=== PATIENT | female | born 1985 | race Caucasian/White ===

== ENCOUNTER 2019-06-08 15:46 | Emergency (ER) | payer OTHER ==
--- NOTE | 2019-06-08 15:50 | PDOC ---
Rapid Medical Evaluation Time Seen by Provider: 06/08/19 15:48 Medical Evaluation: Allergies Allergy/AdvReac Type Severity Reaction Status Date / Time No Known Allergies Allergy Verified 06/08/19 15:48 06/08/19 15:49 HPI: Questionable abscess lower back; On ABX without relief PE:Area not visualized in triage; otherwise no gross deficits ORDERS:Nothing Discharge Disposition - Diagnosis Abscess - Referrals - Patient Instructions - Post Discharge Activity
[2019-06-08 15:54] VITALS: BP 120/62; PULSE 69; TEMP 97.7; BMI 20.3
[2019-06-08] MEDS ORDERED: IBUPROFEN 600 MG TABLET (FP) PO ONE ×2 (18:26→19:30)
--- NOTE | 2019-06-08 19:16 | PDOC ---
History of Present Illness - General Chief Complaint: Abscess Boil Stated Complaint: BOIL ON THE LOWER BACK Time Seen by Provider: 06/08/19 15:48 History Source: Patient Exam Limitations: No Limitations - History of Present Illness Initial Comments: 06/08/19 19:17 33 year old female with no significant medical or surgical history presents with abscess to right buttocks x 1 week. Seen by pmd started on Augmentin and told to do warm soaks, also given instructions to come into emergency room if area is not getting better. Denies fever or chills Timing/Duration: reports: week Severity: Yes: mild Location: reports: torso Respiratory Risk Factors: reports: no cause identified Modifying Factors: improves with: other (antibiotics and analgesia) Past History - Travel Traveled outside of the country in the last 30 days: No Close contact w/someone who was outside of country & ill: No - Past Medical History Allergies/Adverse Reactions: Allergies Allergy/AdvReac Type Severity Reaction Status Date / Time No Known Allergies Allergy Verified 06/08/19 15:48 Home Medications: Ambulatory Orders Cephalexin [Keflex] 500 mg PO BID #7 capsule 06/08/19 Sulfamethoxazole/Trimethoprim [Bactrim Ds -] 1 tab PO BID #20 tablet 06/08/19 Cancer: No Cardiac Disorders: No CVA: No COPD: No DVT: No Dementia: No - Suicide/Smoking/Psychosocial Hx Smoking History: Never smoked Hx Alcohol Use: No Drug/Substance Use Hx: No Substance Use Type: None Review of Systems - Review of Systems Able to Perform ROS?: Yes Is the patient limited Luxem[place]ish proficient: No Constitutional: No: Chills, Fever HEENTM: No: Nose Pain, Nose Congestion, Throat Swelling Respiratory: No: Orthopnea, Shortness of Breath, Stridor Cardiac (ROS): No: Chest Pain, Lightheadedness ABD/GI: No: Nausea, Poor Appetite, Poor Fluid Intake, Vomiting, Indigestion, Abdominal cramping : No: Burning, Dysuria, Hematuria, Incontinence Musculoskeletal: No: Gout, Joint Pain, Muscle Weakness, Neck Pain Integumentary: Yes: Other (abscess to right buttocks) Neurological: No: Headache, Numbness Psychiatric: No: Stressors, Mood Swings Endocrine: No: Increased Thirst Hematologic/Lymphatic: No: Easy Bleeding, Easy Bruising, Bleeding Diathesis *Physical Exam - Vital Signs Last Vital Signs Temp Pulse Resp BP Pulse Ox 97.7 F 69 16 120/62 98 06/08/19 15:50 06/08/19 15:50 06/08/19 15:50 06/08/19 15:50 06/08/19 15:50 - Physical Exam General Appearance: Yes: Nourished, Appropriately Dressed. No: Apparent Distress HEENT: positive: EOMI, PARTH, TMs Normal, Pharynx Normal. negative: Tonsillar Erythema, Nasal Congestion, Rhinorrhea Neck: positive: Supple. negative: Lymphadenopathy (R), Lymphadenopathy (L) Respiratory/Chest: positive: Lungs Clear, Normal Breath Sounds. negative: Respiratory Distress Cardiovascular: positive: Regular Rhythm, Regular Rate, S1, S2 Gastrointestinal/Abdominal: positive: Normal Bowel Sounds Extremity: positive: Normal Capillary Refill Integumentary: positive: Other (+ abscess to right buttocks, + erythematous, + fluctuance, small punctuate) Neurologic: positive: Fully Oriented, Alert, Normal Mood/Affect Procedures - Incision and Drainage I&D Site: Right: Buttock Betadine cleansed: Yes Anesthesia: 2% Lidocaine Volume(ml): 10 Blade Size: 10 Iodinated Packin/2 in Plain Packing: Yes Complications: none Dressing: Yes Progress: 06/08/19 19:23 Patient tolerated procedure well, incision with drainage of serosanguanous drainage Medical Decision Making - Medical Decision Making 06/08/19 19:21 33 year old female with no significant medical or surgical history presents with abscess to right buttocks x 1 week. Plan wound culture ibuprofen i+ d of abscess with packing placed instructions given not to remove dressing or packing return for wound check in 2 days rx; bactrim Ds and keflex d/c augmentin *DC/Admit/Observation/Transfer Diagnosis at time of Disposition: Abscess - Discharge Dispostion Disposition: HOME Condition at time of disposition: Good Decision to Admit order: No - Prescriptions Prescriptions: Cephalexin [Keflex] 500 mg PO BID #7 capsule Sulfamethoxazole/Trimethoprim [Bactrim Ds -] 1 tab PO BID #20 tablet - Referrals Referrals: Charles Smith MD [Primary Care Provider] - Call tomorrow - Patient Instructions Printed Discharge Instructions: Boil Additional Instructions: Please keep dressing in place for 48 hours, do not get it wet. Take antibiotics as prescribed. Stop taking augmentin previously prescribed May take ibuprofen for pain Return to emergency department 06/10/19 for wound check and packing removal - Post Discharge Activity Forms/Work/School Notes: Back to Work
== END 2019-06-08 19:34 | disposition home or self-care (01) ==
LOC: JERFT 15:46
PROC: 0H98XZZ Drainage of Buttock Skin, External Approach (ICD-10-PCS; principal; 2019-06-08)
DX: L02.31 Cutaneous abscess of buttock (principal)
CPT/HCPCS: 87070; 87186; 87205; 99281-25

== ENCOUNTER 2019-06-10 10:21 | Emergency (ER) | payer OTHER ==
[2019-06-10 10:48] VITALS: BP 123/66; PULSE 83; BMI 20.2
--- NOTE | 2019-06-10 11:37 | PDOC ---
History of Present Illness - General Chief Complaint: Wound Stated Complaint: WOUND CHECK Time Seen by Provider: 06/10/19 11:23 - History of Present Illness Initial Comments: 06/10/19 11:34 33-year-old female presents for wound check after I&D of an abscess 2 days ago. She's feeling better and taking antibiotics. Past History - Past Medical History Allergies/Adverse Reactions: Allergies Allergy/AdvReac Type Severity Reaction Status Date / Time No Known Allergies Allergy Verified 06/08/19 15:48 Home Medications: Ambulatory Orders Cephalexin [Keflex] 500 mg PO BID #7 capsule 06/08/19 Sulfamethoxazole/Trimethoprim [Bactrim Ds -] 1 tab PO BID #20 tablet 06/08/19 Cancer: No Cardiac Disorders: No CVA: No COPD: No DVT: No Dementia: No - Immunization History Immunization Up to Date: Yes - Suicide/Smoking/Psychosocial Hx Smoking History: Never smoked Information on smoking cessation initiated: No Hx Alcohol Use: No Drug/Substance Use Hx: No Substance Use Type: None Review of Systems - Review of Systems Integumentary: Yes: See HPI *Physical Exam - Vital Signs Last Vital Signs Temp Pulse Resp BP Pulse Ox 83 17 123/66 98 06/10/19 10:45 06/10/19 10:45 06/10/19 10:45 06/10/19 10:45 - Physical Exam Comments: 06/10/19 11:34 The wound on the lumbosacral spine is visualized packing was removed. There is minimal induration surrounding the area of the incision. There is no purulent drainage. No erythema or warmth. There is appropriate tenderness. No gross sensory motor deficits. Medical Decision Making - Medical Decision Making 06/10/19 11:35 packing Was removed and a wet-to-dry dressing was placed. Instructions for twice a day changes were given *DC/Admit/Observation/Transfer Diagnosis at time of Disposition: Wound check, abscess - Discharge Dispostion Disposition: HOME Condition at time of disposition: Stable Decision to Admit order: No - Referrals Referrals: Enrico Subramanian MD [Staff Physician] - - Patient Instructions Additional Instructions: Continue with wet-to-dry dressing changes twice daily as discussed. Return to the emergency room in 3 days for wound check or sooner if problems develop. Continue the antibiotics as directed. - Post Discharge Activity
== END 2019-06-10 12:17 | disposition home or self-care (01) ==
LOC: JERFT 10:21
DX: Z48.01 Encounter for change or removal of surgical wound dressing (principal)
CPT/HCPCS: 99281-25

== ENCOUNTER 2019-06-13 14:30 | Emergency (ER) | payer OTHER ==
--- NOTE | 2019-06-13 14:34 | PDOC ---
Rapid Medical Evaluation Time Seen by Provider: 06/13/19 14:33 Medical Evaluation: Allergies Allergy/AdvReac Type Severity Reaction Status Date / Time No Known Allergies Allergy Verified 06/08/19 15:48 06/13/19 14:33 CC: wound check PE: deferred Orders: nothing Patient will proceed to ED for continued evaluation. Discharge Disposition - Diagnosis Wound check, abscess - Referrals - Patient Instructions - Post Discharge Activity
[2019-06-13 14:38] VITALS: BP 122/51; PULSE 71; TEMP 97.9; BMI 19.5
--- NOTE | 2019-06-13 15:06 | PDOC ---
History of Present Illness - General Chief Complaint: Wound Stated Complaint: WOUND CHECK Time Seen by Provider: 06/13/19 14:33 - History of Present Illness Initial Comments: 06/13/19 15:05 33-year-old female presents for evaluation of wound check from an abscess that was drained and followed up for wound care. She is currently doing wet-to-dry dressing changes twice daily Past History - Past Medical History Allergies/Adverse Reactions: Allergies Allergy/AdvReac Type Severity Reaction Status Date / Time No Known Allergies Allergy Verified 06/08/19 15:48 Home Medications: Ambulatory Orders Cephalexin [Keflex] 500 mg PO BID #7 capsule 06/08/19 Sulfamethoxazole/Trimethoprim [Bactrim Ds -] 1 tab PO BID #20 tablet 06/08/19 Cancer: No Cardiac Disorders: No CVA: No COPD: No DVT: No Dementia: No - Immunization History Immunization Up to Date: Yes - Suicide/Smoking/Psychosocial Hx Smoking History: Never smoked Hx Alcohol Use: No Drug/Substance Use Hx: No Substance Use Type: None Review of Systems - Review of Systems Constitutional: Yes: See HPI *Physical Exam - Vital Signs Last Vital Signs Temp Pulse Resp BP Pulse Ox 97.9 F 71 20 122/51 L 98 06/13/19 14:35 06/13/19 14:35 06/13/19 14:35 06/13/19 14:35 06/13/19 14:35 - Physical Exam Comments: 06/13/19 15:04 the wound granulating. Normal surrounding skin color and temperature. Medical Decision Making - Medical Decision Making 06/13/19 15:04 The wound is granulating nicely. Wet-to-dry dressing applied will change to once daily instead of twice daily for the next 45 days *DC/Admit/Observation/Transfer Diagnosis at time of Disposition: Wound check, abscess - Discharge Dispostion Disposition: HOME Condition at time of disposition: Stable Decision to Admit order: No - Referrals Referrals: Charles Smith MD [Primary Care Provider] - - Patient Instructions Additional Instructions: Return to the emergency room for worsening issues. Continue with wet-to-dry dressing changes once a day for the next 4-5 days. Leave the area open to air as much as possible and follow-up with her primary care physician in 1-2 days for further evaluation and treatment options. - Post Discharge Activity
== END 2019-06-13 15:14 | disposition home or self-care (01) ==
LOC: JERFT 14:30
DX: Z48.01 Encounter for change or removal of surgical wound dressing (principal)
CPT/HCPCS: 99281-25

== ENCOUNTER 2019-06-26 13:23 | Emergency (ER) | payer OTHER ==
[2019-06-26 13:30] VITALS: BP 109/64; PULSE 61; TEMP 97.9; BMI 20.3
--- NOTE | 2019-06-26 13:49 | PDOC ---
History of Present Illness - General Chief Complaint: Abscess Boil Stated Complaint: ABCESS/LOWER BACK Time Seen by Provider: 06/26/19 13:41 History Source: Patient Exam Limitations: No Limitations - History of Present Illness Initial Comments: 06/26/19 13:50 HISTORY OF PRESENT ILLNESS: This is a 33-year-old woman with a recent abscess who presents emergency department for evaluation of pain and swelling to her left buttock. Patient believes she has another abscess that is not draining. She reports recently taking Keflex and Bactrim the previous abscess which had I& D performed here. Patient denies fevers, chills. No recent travel or sick contacts. PAST MEDICAL HISTORY: Denies past medical history SURGICAL HISTORY: Denies ALLERGIES: No known drug allergies REVIEW OF SYSTEMS General/Constitutional: Denies fever or chills. Denies weakness, weight change. HEENT: Denies change in vision. Denies ear pain or discharge. Denies sore throat. Cardiovascular: Denies chest pain or shortness of breath. Respiratory: Denies cough, wheezing, or hemoptysis. Gastrointestinal: Denies nausea, vomiting, diarrhea or constipation. Denies rectal bleeding. Genitourinary: Denies dysuria, frequency, or change in urination. Musculoskeletal: Denies joint or muscle swelling or pain. Denies neck or back pain. Skin and breasts: see HPI Neurologic: Denies headache, vertigo, loss of consciousness, or loss of sensation. Psychiatric: Denies depression or anxiety. Endocrine: Denies increased thirst. Denies abnormal weight change. Hematologic/Lymphatic: Denies anemia, easy bleeding, or history of blood clots. Allergic/Immunologic: Denies hives or skin allergy. Denies latex allergy. PHYSICAL EXAM General Appearance: Well-appearing, appropriately dressed. No apparent distress , no intoxication. Respiratory/Chest: Lungs CTAB. No shortness of breath, chest tenderness, respiratory distress, accessory muscle use. No crackles, rales, rhonchi, stridor , wheezing, dullness Cardiovascular: RRR. S1, S2. No JVD, murmur, bradycardia, tachycardia. Integumentary: 8 cm circular area of erythema and induration present to the left buttock. No palpable area of fluctuance present. 2 cm circular area of erythema and induration presents to the left buttock which is superior and lateral to the larger area of erythema. No fluctuance present. Neurologic: library media specialist II-XII intact. Fully oriented, alert. Appropriate mood/affect. Motor strength 5/5. No appreciable EOM palsy, facial droop or sensory deficit. Past History - Past Medical History Allergies/Adverse Reactions: Allergies Allergy/AdvReac Type Severity Reaction Status Date / Time No Known Allergies Allergy Verified 06/26/19 13:30 Home Medications: Ambulatory Orders Cephalexin [Keflex] 500 mg PO BID #7 capsule 06/08/19 Sulfamethoxazole/Trimethoprim [Bactrim Ds -] 1 tab PO BID #20 tablet 06/08/19 Clindamycin [Cleocin -] 450 mg PO Q8H #63 capsule 06/26/19 Cancer: No Cardiac Disorders: No CVA: No COPD: No DVT: No Dementia: No - Immunization History Immunization Up to Date: Yes - Suicide/Smoking/Psychosocial Hx Smoking History: Never smoked Hx Alcohol Use: No Drug/Substance Use Hx: No Substance Use Type: None *Physical Exam - Vital Signs Last Vital Signs Temp Pulse Resp BP Pulse Ox 97.9 F 61 18 109/64 99 06/26/19 13:28 06/26/19 13:28 06/26/19 13:28 06/26/19 13:28 06/26/19 13:28 Medical Decision Making - Medical Decision Making 06/26/19 13:53 A/P: 33-year-old woman with cellulitis of her left buttock Microbiology report from previous I&D reveals Staphylococcus aureus which is highly sensitive to clindamycin As there is currently no fluctuant area for I&D to be performed, I will discharge the patient home with clindamycin 450 mg 3 times a day for the next week. Patient has been instructed to use warm compresses to affected areas to help expedite the process potentially forming area of fluctuance to be drained. Portions of this note have been documented using voice recognition software. As a result, errors may occur in the intravenous therapy nurse process. Effort has been made to correct all grammatical and intravenous therapy nurse error, but some may have been missed. *DC/Admit/Observation/Transfer Diagnosis at time of Disposition: Cellulitis Qualifiers: Site of cellulitis: buttock Qualified Code(s): L03.317 - Cellulitis of buttock - Discharge Dispostion Disposition: HOME Condition at time of disposition: Stable Decision to Admit order: No - Prescriptions Prescriptions: Clindamycin [Cleocin -] 450 mg PO Q8H #63 capsule - Referrals Referrals: Charles Smith MD [Primary Care Provider] - - Patient Instructions Additional Instructions: Take Clindamycin 450 mg 3 times a day for the next 7 days Finish all antibiotics even if you feel better. Apply warm compresses to affected areas as needed. Return to emergency department for any worsening pain, drainage, or any other concerns. Thank you very much for choosing us to provide your emergent health care needs. - Post Discharge Activity
== END 2019-06-26 14:08 | disposition home or self-care (01) ==
LOC: JER 13:23
DX: L03.317 Cellulitis of buttock (principal); Z86.19 Personal history of other infectious and parasitic diseases
CPT/HCPCS: 99281-25

== ENCOUNTER 2019-09-01 19:33 | Emergency (ER) | payer OTHER ==
[2019-09-01 19:42] VITALS: BP 128/77; PULSE 70; TEMP 97.9; BMI 22.7
--- NOTE | 2019-09-01 19:42 | PDOC ---
Rapid Medical Evaluation Chief Complaint: Abscess Boil Time Seen by Provider: 09/01/19 19:37 Medical Evaluation: Allergies Allergy/AdvReac Type Severity Reaction Status Date / Time No Known Allergies Allergy Verified 06/26/19 13:30 09/01/19 19:39 I have performed a brief in-person evaluation of this patient. The patient presents with a chief complaint of:recurrent boils/ abscess to buttocks , finished abx 2 weeks for 2nd episode of same. Culture then reveals PCN Resistant Staph. Pertinent physical exam findings:multiple lesions to right buttock, some erythema but none draining I have ordered the following: nothing The patient will proceed to the ED for further evaluation. 09/01/19 19:46 Discharge Disposition - Diagnosis Wound check, abscess - Discharge Dispostion Condition at time of disposition: Stable - Referrals - Patient Instructions - Post Discharge Activity
--- NOTE | 2019-09-01 20:03 | PDOC ---
History of Present Illness - General Chief Complaint: Abscess Boil Stated Complaint: ABSCESS Time Seen by Provider: 09/01/19 19:37 History Source: Patient - History of Present Illness Initial Comments: 09/01/19 20:37 Chief complaint: Abscess Patient is a 33-year-old female who has issues with recurrent abscesses to her buttocks. She has been here several times recently with similar problems, had original culture that showed she is staph aureus. Patient has taken Bactrim and Keflex, had an I&D done. The next time she was put on clindamycin and each time it got better. She followed up with her regular doctor who put her on unknown antibiotic which got better and now is getting worse again. Patient has no fever she just has some pain. GENERAL/CONSTITUTIONAL: No fever, weakness. dizziness HEAD, EYES, EARS, NOSE AND THROAT: No change in vision. No ear pain or discharge. No sore throat. CARDIOVASCULAR: No chest pain RESPIRATORY: No shortness of breath or cough GASTROINTESTINAL: No pain, nausea, vomiting, diarrhea or constipation GENITOURINARY: No dysuria MUSCULOSKELETAL: No neck or back pain SKIN: + Abscess NEUROLOGIC: No headache, vertigo, loss of consciousness, or loss of sensation. GENERAL: The patient is awake, alert, and fully oriented, in no acute distress. HEAD: Normal with no signs of trauma. EYES: Pupils equal, round and reactive to light, sclera anicteric, conjunctiva clear. ENT: pharynx: no erythema, no exudate, uvula midline NECK: supple CHEST: clear, nontender, rr ABD: soft, nontender Buttocks: Patient has several healing areas of folliculitis, one larger one which is slightly tender with mild erythema, no fluctuance, no signs of abscess BACK: no tenderness or signs of injury EXTREMITIES: Normal range of motion, no edema. NEUROLOGICAL: Normal speech, normal gait. SKIN: Warm, Dry Past History - Past Medical History Allergies/Adverse Reactions: Allergies Allergy/AdvReac Type Severity Reaction Status Date / Time No Known Allergies Allergy Verified 09/01/19 19:44 Home Medications: Ambulatory Orders Cephalexin [Keflex] 500 mg PO BID #7 capsule 06/08/19 Sulfamethoxazole/Trimethoprim [Bactrim Ds -] 1 tab PO BID #20 tablet 06/08/19 Clindamycin [Cleocin -] 450 mg PO Q8H #63 capsule 06/26/19 Cephalexin [Keflex] 500 mg PO QID #28 capsule 09/01/19 Hydrocodone/Acetaminophen [Hydrocodone-Acetamin 5-325 mg] 1 each PO HS PRN #10 tablet MDD 1 09/01/19 Sulfamethoxazole/Trimethoprim [Bactrim Ds Tablet] 1 each PO BID #20 tablet 09/01 Cancer: No Cardiac Disorders: No CVA: No COPD: No DVT: No Dementia: No - Immunization History Immunization Up to Date: Yes - Psycho Social/Smoking Cessation Hx Smoking History: Never smoked Have you smoked in the past 12 months: No Information on smoking cessation initiated: No Hx Alcohol Use: No Drug/Substance Use Hx: No Substance Use Type: None *Physical Exam - Vital Signs Last Vital Signs Temp Pulse Resp BP Pulse Ox 97.9 F 70 17 128/77 100 09/01/19 19:37 09/01/19 19:37 09/01/19 19:37 09/01/19 19:37 09/01/19 19:37 Medical Decision Making - Medical Decision Making 09/01/19 20:46 Patient with reoccurring folliculitis, abscess to her buttocks, was on antibiotics 3 times and keeps coming back after she finishes the antibiotics patient does not look ill. There is no abscess to I&D. When asked which antibiotics worked better she said the first time which was Keflex and Bactrim which are both sensitive on the culture. Patient will be given prescription for 10 days. I encouraged patient to go to wound care so they can further evaluate. She may also need to see an infectious disease doctor although she has a very good primary care doctor. Discussed issues, findings, results, applicable medications and treatments and follow-up. All these were understood and all questions were answered Discharge - Discharge Information Problems reviewed: Yes Clinical Impression/Diagnosis: Folliculitis Condition: Stable Disposition: HOME - Admission No - Additional Discharge Information Prescriptions: Cephalexin [Keflex] 500 mg PO QID #28 capsule Hydrocodone/Acetaminophen [Hydrocodone-Acetamin 5-325 mg] 1 each PO HS PRN #10 tablet MDD 1 PRN Reason: Pain Sulfamethoxazole/Trimethoprim [Bactrim Ds Tablet] 1 each PO BID #20 tablet - Follow up/Referral Referrals: ON STAFF,NOT [Primary Care Provider] - - Patient Discharge Instructions Additional Instructions: Clean with soap and water 2-3 times daily Take the Bactrim and Keflex as prescribed, follow-up with wound care, call in the morning [phone] Have her reevaluated if redness, pus, fever or getting worse Followup with your doctor - Post Discharge Activity
== END 2019-09-01 20:33 | disposition home or self-care (01) ==
LOC: JERFT 19:33
DX: L73.8 Other specified follicular disorders (principal)
CPT/HCPCS: 99281-25

== ENCOUNTER 2023-11-04 21:00 | Emergency (ER) | payer OTHER ==
[2023-11-04 21:08] VITALS: BP 120/67; PULSE 74; RESP 20; TEMP 97.6; BMI 21.9
[2023-11-04] MEDS ORDERED: METHOCARBAMOL 750 MG TABLET PO ONE (22:29)
[2023-11-04] MEDS ORDERED: ACETAMINOPHEN 500 MG TABLET (FP) PO ONE (22:29)
[2023-11-04] MEDS ORDERED: NAPROXEN 250 MG TABLET PO ONE (22:29)
[2023-11-04] MEDS ORDERED: METHOCARBAMOL 500 MG TABLET ONE (22:32)
[2023-11-04] MEDS ORDERED: ACETAMINOPHEN 500 MG TABLET (FP) ONE (22:32)
[2023-11-04] MEDS ORDERED: NAPROXEN 500 MG TABLET ONE (22:33)
== END 2023-11-04 22:48 | disposition home or self-care (01) ==
LOC: JERFT 21:00
DX: M25.511 Pain in right shoulder (principal)
CPT/HCPCS: 73030-TC-RT-FY; 99283-25

== ENCOUNTER 2024-08-18 19:46 | Emergency (ER) | payer OTHER ==
[2024-08-18 19:59] VITALS: BP 121/74; PULSE 82; RESP 18; TEMP 97.9; BMI 21.9
[2024-08-18] MEDS ORDERED: METOCLOPRAMIDE HCL INJECTION 10 MG/2 ML VIAL ONE (20:57)
[2024-08-18] MEDS ORDERED: KETOROLAC TROMETHAMINE 15 MG/ML VIAL ONE (20:57)
[2024-08-18 21:03] LABS: BASO % 0.8 % (0-2.0); HEMATOCRIT 37.7 % (32.4-45.2); LYMPH % 36.7 % (8-40); MCH 31.3 pg (25.7-33.7); MCHC 34.4 g/dl (32.0-36.0); MEAN CELL VOLUME 90.8 fl (80-96); MEAN PLT VOLUME 8.3 fl (7.5-11.1); MONO % 9.5 % (3.8-10.2); PLATELET COUNT 249 10^3/uL (134-434); RBC 4.15 M/mm3 (3.60-5.2); RDW 12.8 % (11.6-15.6); WHITE BLOOD COUNT 6.7 K/mm3 (4.0-10.0)
[2024-08-18] MEDS: KETOROLAC TROMETHAMINE 15 MG/ML VIAL IVPUSH ONE (21:08)
[2024-08-18] MEDS: METOCLOPRAMIDE HCL INJECTION 10 MG/2 ML VIAL IVPB ONE (21:22)
[2024-08-18 21:32] LABS: CHLORIDE 108 mmol/L (98-107); POTASSIUM 3.6 mmol/L (3.5-5.1); SODIUM 140 mmol/L (136-145)
[2024-08-18 21:34] LABS: ALBUMIN 3.6 g/dl (3.4-5.0); ANION GAP 5 mmol/L (4-13); BLOOD UREA NITROGEN 12.8 mg/dL (7-18); CALCIUM 8.8 mg/dL (8.5-10.1); CO2 27 mmol/L (21-32); GLUCOSE,RANDOM 110 mg/dL (74-106)
[2024-08-18 21:37] LABS: CREATININE 0.6 mg/dL (0.55-1.3); SGOT/AST 7 U/L (15-37); SGPT/ALT 16 U/L (13-61)
[2024-08-18 21:39] LABS: BILIRUBIN,TOTAL 0.2 mg/dL (0.2-1); TOT PROT 6.6 g/dl (6.4-8.2)
[2024-08-18 21:40] LABS: ALK PHOS 53 U/L (45-117)
[2024-08-18 22:27] LABS: HIV INTERPRETATION NEGATIVE (NEGATIVE)
== END 2024-08-18 22:06 | disposition home or self-care (01) ==
LOC: JER 19:46
PROC: 3E0333Z Introduction of Anti-inflammatory into Peripheral Vein, Percutaneous Approach (ICD-10-PCS; principal; 2024-08-18)
PROC: 3E033GC Introduction of Other Therapeutic Substance into Peripheral Vein, Percutaneous Approach (ICD-10-PCS; 2024-08-18)
DX: R10.12 Left upper quadrant pain (principal); R07.81 Pleurodynia; R51.9 Headache, unspecified; M79.661 Pain in right lower leg; M79.662 Pain in left lower leg
CPT/HCPCS: 36415; 71101-TC-LT-FY; 80053; 84702; 85025; 86803; 87389; 99284-25